=== PATIENT | female | born 1985 | race Caucasian/White ===

== ENCOUNTER 2024-06-09 15:17 | Emergency (ER) | payer SELFPAY ==
[2024-06-09 15:21] VITALS: BP 134/80; PULSE 74; TEMP 36.7; O2SAT 99; BMI 28.0
--- NOTE | 2024-06-09 15:27 | PC.NURSE ---
Patient reports having nausea and loose stool yesterday. Refuses gown and assessment.
--- NOTE | 2024-06-09 15:36 | ED.GENADUL1 ---
HPI HPI - General Adult General Chief complaint: Nausea/Vomiting/Diarrhea Stated complaint: Nausea/Vomiting/Diarrhea Time Seen by Provider: 06/09/24 15:24 Source: family Mode of arrival: walk-in History of Present Illness HPI narrative: Patient is a 38-year-old female who presents to the emergency department for evaluation of vomiting and diarrhea. Patient states this morning she had epigastric abdominal discomfort with vomiting and diarrhea. This has now resolved and she was able to hold down broth prior to arrival. She denies fevers or upper respiratory symptoms. She is not concerned for . She states that she came to this emergency department because she does not have a primary care provider and she needs a work note to keep her from losing her job. Related Data Home Medications ?Medication ?Instructions ?Recorded ?Confirmed No Known Home Medications 06/09/24 06/09/24 Previous Rx's ?Medication ?Instructions ?Recorded ondansetron 4 mg disintegrating 4 mg PO Q6H PRN nausea and 06/09/24 tablet vomiting #12 tabs Allergies Allergy/AdvReac Type Severity Reaction Status Date / Time morphine AdvReac Intermediate Nausea Verified 06/09/24 15:21 Opioid HPI Opioid Management Most Recent Opioid Data: No Data to Display Review of Systems ROS Constitutional Denies: fever or chills Ears, nose, mouth, and throat Denies: throat pain or nasal congestion Cardiovascular Denies: chest pain Respiratory Denies: shortness of breath Gastrointestinal Reports: abdominal pain, nausea, vomiting and diarrhea Musculoskeletal Denies: back pain or neck pain Integumentary/Breast Denies: rash Neurological Denies: numbness in extremities or weakness in extremities Hematologic/Lymphatic Denies: easy bruising or easy bleeding PFSH PFS Social History Little interest or pleasure in doing things: not at all Feeling down, depressed, or hopeless: not at all Exam Narrative Exam Narrative: Gen.: Awake, alert, in no distress Head: Normocephalic, atraumatic ENT: Moist mucous membranes Respiratory: No respiratory distress Gastrointestinal: Abdomen is soft, nondistended and nontender to palpation Extremities: Moves extremities equally Psych: Normal mood and affect Neuro: No focal neuro deficit Skin: Warm, dry, intact Constitutional Vital Signs, click to edit/add: Last Vital Signs Temp 98.1 F 06/09/24 15:21 Pulse 74 06/09/24 15:21 Resp 18 06/09/24 15:21 BP 134/80 06/09/24 15:21 Pulse Ox 99 06/09/24 15:21 O2 Del Method Room Air 06/09/24 15:21 Course Vital Signs Vital signs: Vital Signs Temperature 98.1 F 06/09/24 15:21 Pulse Rate 74 06/09/24 15:21 Respiratory Rate 18 06/09/24 15:21 Blood Pressure 134/80 06/09/24 15:21 Pulse Oximetry 99 06/09/24 15:21 Oxygen Delivery Method Room Air 06/09/24 15:21 Temperature 98.1 F 06/09/24 15:21 Pulse Rate 74 06/09/24 15:21 Respiratory Rate 18 06/09/24 15:21 Blood Pressure 134/80 06/09/24 15:21 Pulse Oximetry 99 06/09/24 15:21 Oxygen Delivery Method Room Air 06/09/24 15:21 Medical Decision Making MDM Narrative Medical decision making narrative: Discussed evaluation in the ER with the patient. She declined to put on a gown and states that she would just like a work note, I discussed with her that we would typically order IV medications, lab testing and urine testing with possibly imaging studies if indicated for her complaints. She states that she feels this is not needed at this time. She was treated for symptoms with Zofran in the ER and Zofran prescription for home. She was given a work note and a primary care provider referral. She understands if her symptoms are worsening and not improving, she should return to the emergency department for evaluation. She was encouraged to follow clear liquid diet for 24 to 48 hours. SUPERVISED APC VISIT, PHYSICIAN ATTESTATION: Based on the medical record the care appears appropriate. ? Medical Records Medical records reviewed: Yes I reviewed the patient's medical records Discharge Plan Discharge Chief Complaint: Nausea/Vomiting/Diarrhea Clinical Impression: Nausea, vomiting, and diarrhea Patient Disposition: Home, Self-Care Time of Disposition Decision: 15:35 Condition: Good Prescriptions / Home Meds: New ondansetron 4 mg tablet,disintegrating 4 mg PO Q6H PRN (Reason: nausea and vomiting) Qty: 12 0RF No Action No Known Home Medications Print Language: [place]ian Instructions: Acute Nausea and Vomiting (ED) Referrals: Physician,Non-Staff, [Primary Care Provider] - 1 week Discharge Date/Time: 06/09/24 15:48
[2024-06-09] MEDS: ONDANSETRON 4 MG RAPDIS TABLET SL (15:44)
== END 2024-06-09 15:48 | disposition home or self-care (01) ==
PROVIDERS: Emergency Provider Emergency Medicine
DX: R19.7 Diarrhea, unspecified (principal); R11.2 Nausea with vomiting, unspecified
CPT/HCPCS: 99283; Q0162